=== PATIENT | female | born 1965 | race Caucasian/White ===

== ENCOUNTER 2017-05-30 12:58 | Inpatient (IN) | payer BC ==
[~2017-05-30] VITALS: Ht 157.5 cm; Wt 141.6 kg
--- NOTE | ~2017-05-30 | CN ---
Consultation Report [facility] [address] [place]. [address] NAME: EUGENE DURAND : 69 STATUS : ADM IN PAT#: [id number] AGE: 51 ADM/REG DATE : 05/30/17 MR#: [id number] REPORT SERV DATE: 06/02/17 DICTATED BY: MAYO MCDONALD DATE: 06/01/17 REPORT STATUS : Draft TRANSCRIBED BY: MODL DATE: 06/01/17 INFECTIOUS DISEASE CONSULT DATE OF CONSULTATION: 06/01/2017 REASON FOR CONSULTATION: MSSA sepsis. HISTORY OF PRESENT ILLNESS: This is a 51-year-old female with a past medical history notable for diabetes and morbid obesity, who had progressed to end-stage renal disease recently and begun on dialysis a few weeks ago. Initially, a PermCath had been placed, but she does have an AV fistula, which has been used more recently. The patient developed the acute onset of chills, shortness of breath, and some chest discomfort on the night of 05/29/2017 and presented to the emergency department on 05/30/2017 where she was febrile to 100.3 and had a white blood cell count of 20.4 thousand and procalcitonin of 3.28. Blood cultures were obtained, and she was started on antibiotics. Her PermCath was removed. Both sets of blood cultures returned positive for MSSA and the tip of her PermCath also has grown greater than 100 colonies of MSSA. The patient was placed initially on vancomycin. This was switched yesterday to Ancef. Her white blood cell count is now normal. She did have a fever to 103.6 yesterday, but has been afebrile since then. She denies any pain. She denies having had any problems with the PermCath. PAST MEDICAL HISTORY: As outlined above. She has had severe diabetic retinopathy and is blind. There is a history of congestive heart failure, hypothyroidism, and anxiety. ALLERGIES: NONE. MEDICATIONS: Present medications in addition to Ancef include Norvasc, aspirin, Lipitor, vitamin D, iron, Lasix, subcutaneous heparin, hydralazine, insulin, Synthroid, Accupril, Zoloft, Aldactone. SOCIAL HISTORY: Lives with her brothers. Nonsmoker, nondrinker. FAMILY HISTORY: Unremarkable. REVIEW OF SYSTEMS: Otherwise negative. She has no prosthetic material otherwise in her body. No history of valvular heart disease. PHYSICAL EXAMINATION: VITAL SIGNS: The patient weighs 145 kg. She is afebrile. Blood pressure 129/60; pulse 79, it was as high as 103; respiratory rate 16, it was as high as 24. GENERAL: She is alert, no distress. HEAD AND NECK: Oral cavity is clear. LUNGS: Clear to auscultation anteriorly. CARDIAC: Somewhat distant heart sounds. Regular rate and rhythm. Normal S1, S2 with a very Consultation Report [address] [place]. [address] NAME: EUGENE DURAND : 69 STATUS : ADM IN LOCATED WITHIN [facility]#: [id number] AGE: 51 ADM/REG DATE : 05/30/17 MR#: [id number] REPORT SERV DATE: 06/02/17 DICTATED BY: MAYO MCDONALD DATE: 06/01/17 REPORT STATUS : Draft TRANSCRIBED BY: CATHLEEN DATE: 06/01/17 soft 1/6 systolic murmur, left sternal border. ABDOMEN: Obese, soft, and nontender. EXTREMITIES: Show trace edema of the lower legs. She has an AV fistula in her left arm. She has a peripheral IV in her right arm without phlebitis. The old PermCath site in the right upper chest is covered by a dressing. LABORATORY STUDIES: White blood cell counts as mentioned, hemoglobin 10.2, platelets 214. Microbiology studies as noted. Blood cultures were repeated later on 05/30/2017 and have returned negative. Chest x-ray showed some mild congestive changes. The patient had a transthoracic echocardiogram on 06/01/2017, which was a technically difficult study, but showed normal left ventricular size and function with an estimated ejection fraction of 50% to 55%. There was mild mitral valve stenosis. IMPRESSION: Methicillin-susceptible Staphylococcus aureus sepsis secondary to a PermCath infection. PLAN: 1. Recommend IV Ancef through 06/15/2017, once the patient is discharged, this can be dosed 2 g after the Thursday and dialysis sessions and 3 g after the Thursday dialysis session. 2. Check surveillance blood culture now. 3. She should not need a new catheter as her AV fistula is being used for dialysis. LAKSHMI/CATHLEEN Mayo Mcdonald M.D. / [id number] CC: Charlie Coppola MD [facility]
--- NOTE | ~2017-05-30 | HP ---
History And Physical [id number] [place]. [address] NAME: EUGENE DURAND : 69 STATUS : ADM IN [facility]#: [id number] AGE: 51 ADM/REG DATE : 05/30/17 MR#: [id number] REPORT SERV DATE: 05/30/17 DICTATED BY: DATE: REPORT STATUS : Draft TRANSCRIBED BY: MODL DATE: 05/30/17 DATE OF ADMISSION: 05/30/2017 CHIEF COMPLAINT: Shortness of breath, fever. HISTORY OF PRESENT ILLNESS: Ms. Durand is a 51-year-old white female, who just recently started on dialysis within the last two weeks. She has end-stage renal disease secondary to diabetes and has been dialyzing Thursday, , Thursday at the [facility]. She presented to the emergency department at [facility] after awaking at approximately midnight with sudden-onset nausea, vomiting, shortness of breath, nonproductive cough, and some chest pressure. She denies any productive cough. She did have subjective fevers and at [facility], she was noted to have temperature of 100.3, chest x-ray with edema, question of infection. She has significant cardiomegaly. Given all this, she is being admitted for further evaluation and treatment. PAST MEDICAL HISTORY: 1. End-stage renal disease, dialyzes at [facility] on Thursday, , Thursday. 2. Diabetes with retinopathy. 3. She gives a history of congestive heart failure. She does not know her ejection fraction. 4. Type 2 diabetes. 5. Morbid obesity. 6. Hypothyroidism. 7. Anxiety. FAMILY HISTORY: Negative for end-stage renal disease. SOCIAL HISTORY: She lives with her brothers. No tobacco or history of. No alcohol or illicit drug use. ALLERGIES: NONE. MEDICATIONS AT HOME: Albuterol, amlodipine, aspirin, Lipitor, Symbicort, ferrous sulfate, Lasix, NovoLog insulin, Lantus, levothyroxine, Accupril, Zoloft, and Aldactone, and vitamin D3. REVIEW OF SYSTEMS: A 12-point review of systems obtained, negative with the exception that in HPI. PHYSICAL EXAMINATION: VITAL SIGNS: Temp 100.3, blood pressure 183/85, pulse 77, respiratory rate 20, O2 saturation is 96% on 2 L. GENERAL: This is a chronically ill-appearing 51-year-old white female. She is awake and alert, answers questions appropriately. HEENT: Normocephalic, atraumatic. Conjunctivae clear. Sclerae nonicteric. Pupils are equal and round. Oral mucosa is dry. History And Physical [address] [place]. [address] NAME: EUGENE DURAND : [birth year] STATUS : ADM IN [facility]#: [id number] AGE: 51 ADM/REG DATE : 05/30/17 MR#: [id number] REPORT SERV DATE: 05/30/17 DICTATED BY: DATE: REPORT STATUS : Draft TRANSCRIBED BY: MODL DATE: 05/30/17 NECK: Thick. I really cannot assess neck veins due to her thick neck. LUNGS: Respirations are slightly labored with exertion of talking. She does have bibasilar crackles. HEART: Her heart tones are distant. I did not hear any murmur, rub, or gallop. ABDOMEN: Obese, soft, nontender. Bowel sounds active. No masses or hepatosplenomegaly. No CVA tenderness. BACK: Within normal limits. EXTREMITIES: She does have pitting edema bilaterally. SKIN: No unusual rashes or skin lesions. She has an AV fistula to the left upper arm. Positive thrill and bruit. NEURO: No focal deficits. Mood and affect anxious, but appropriate. PERTINENT LABS AND X-RAYS: She had an influenza screen that was negative. She has a urinalysis without any bacteria. BNP of 870. Sodium 136, potassium 3.3, chloride 98, CO2 of 28, BUN of 26, creatinine of 3.2, calcium 8.5, magnesium of 1.6. Troponin 0.06, lactate 1.7. WBC 20,000, H and H 10 and 33, platelets 291,000. Chest x-ray with significant cardiomegaly with pulmonary edema. IMPRESSION: 1. Shortness of breath. Pulmonary edema. 2. Fever. 3. Nausea, vomiting. 4. Possible pneumonia. 5. End-stage renal disease. 6. Diabetes. 7. Leukocytosis. 8. Hypokalemia. 9. Hypomagnesemia. PLAN: She is going to be admitted to a monitored bed. We will go ahead and dialyze her and challenge UF as able. Usual medicines as appropriate. She has already received Rocephin and azithromycin at [facility]. We will continue this for now. Check procalcitonin. Follow up CBC and cultures in a.m. Serial cardiac enzymes. Replace magnesium. Further orders and recommendations pending clinical course. HELENE/MODL JAMEL Cannon / [id number] CC: Charlie Coppola MD
--- NOTE | ~2017-05-30 | OP ---
Record Of Operation [facility] [address] [place]. [address] NAME: EUGENE DURAND : 69 STATUS : ADM IN [facility]#: [id number] AGE: 51 ADM/REG DATE : 05/30/17 MR#: [id number] REPORT SERV DATE: 05/30/17 DICTATED BY: SEAN FIGUEROA DATE: 05/30/17 REPORT STATUS : Draft TRANSCRIBED BY: MODL DATE: 05/30/17 DATE OF PROCEDURE: 05/30/2017 PREOPERATIVE DIAGNOSES: 1. Fever. 2. End-stage renal disease. POSTOPERATIVE DIAGNOSES: 1. Fever. 2. End-stage renal disease. PROCEDURE: PermCath removal. SURGEON: Sean Figueroa M.D. [employer]ING [employer] H[employer]IC[employer] SQUAD: None. ANESTHESIA: Local. INDICATIONS: The patient is a 51-year-old female who underwent a left brachiocephalic arteriovenous fistula with my partner, Dr. Tolliver. The fistula is working well but she is now admitted with a fever. While it is suspected that it may be related to a pneumonia, I did desire that the PermCath be removed but the tip can be cultured, just in case the PermCath is the source of the infection. Risks, benefits, and alternatives were discussed. She agreed to proceed. DESCRIPTION OF PROCEDURE: After informed consent was obtained, the patient's right chest was prepped and draped in usual sterile fashion. Local anesthetic was administered. I cut the sutures and dissected out the cuff of the PermCath. I removed the PermCath. I used manual pressure for hemostasis. The patient tolerated the procedure well without any intraprocedural complications noted. JEWEL BLOCKER AND SAWYER/CATHLEEN Sean Figueroa M.D. / [id number] CC: Charlie Coppola MD
[~2017-05-30 12:58] MED LIST: ACCUPRIL40 MG PO; ASAB PO; ASABAYER PO; CHOLECALCIFEROL PO; COREG3 PO; COZ25 PO; FERROUS SULF325 M1 PO; L20 PO; LANTUS SC; LEVOTHYROXIN100 MCG PO; LIPITOR20; LIPITOR40 PO; MAGNESIUM PO; MULTIPLE VIT PO; NORV25 PO; NORV5 PO; NOVOLOG SC; PROAIR HFA INH; SPIRO25 PO; SYMBICORT 160/41 INH INH; ZOL100 PO; [UNRECOGNIZED DRUG - OTHER] PO
[2017-05-30] MEDS ORDERED: ACET500CAP PO (16:25)
[2017-05-30] MEDS ORDERED: SPIRO25 PO (16:26)
[2017-05-30] MEDS ORDERED: LIPITOR40 PO (16:26)
[2017-05-30] MEDS ORDERED: LANTUS SC (16:26)
[2017-05-30] MEDS ORDERED: LEVOTHYROXIN150 MCG PO (16:28)
[2017-05-30] MEDS ORDERED: L20 PO (16:28)
[2017-05-30] MEDS ORDERED: NOVOPEN SC (16:29)
[2017-05-30] MEDS ORDERED: D 5000 PO (16:29)
[2017-05-30] MEDS ORDERED: ASAB PO (16:29)
[2017-05-30] MEDS ORDERED: NORV5 PO (16:30)
[2017-05-30] MEDS ORDERED: ACCUPRIL40 MG PO (16:30)
[2017-05-30] MEDS ORDERED: PROAIR HFA INH (16:31)
[2017-05-30] MEDS ORDERED: ZOL100 PO (16:31)
[2017-05-30] MEDS ORDERED: FERROUS SULF325 M1 PO (16:32)
[2017-05-30] MEDS ORDERED: SYMBICORT 80/4.1 INH INH (16:32)
[2017-05-30 19:19] LABS: BASOPHILS 0.1 %; BASOPHILS ABSOLUTE 0.01 10/3/uL (0.0-0.16); EOSINOPHILS 0 %; HEMATOCRIT 32.5 % (36.0-48.0); HEMOGLOBIN 10.6 g/dL (12.0-16.0); IMMATURE GRANULOCYTES 0.3 %; IMMATURE GRANULOCYTES ABSOLUTE 0.06 10/3/uL (0.0-0.11); LYMPHOCYTES 2.3 %; LYMPHOCYTES ABSOLUTE 0.43 10/3/uL (0.67-4.30); MEAN CORPUS HGB CONC 32.6 g/dL (32.0-36.0); MEAN CORPUSCULAR HEMOGLOB 27.1 pg (26.0-34.0); MEAN CORPUSCULAR VOLUME 83.1 fL (80-100); MEAN PLATELET VOLUME 9.4 fL (9.2-13.0); MONOCYTES 1.9 %; MONOCYTES ABSOLUTE 0.35 10/3/uL (0.21-1.20); NEUTROPHILS 95.4 %; NEUTROPHILS ABSOLUTE 17.82 10/3/uL (2.02-8.40); PLATELET COUNT 218 10/3/uL (150-400); RBC DISTRIBUTION WIDTH 16.3 % (12.0-16.0); RED CELL COUNT 3.91 10/6/uL (4.0-5.6); WHITE BLOOD CELLS 18.7 10/3/uL (4.5-10.5)
[2017-05-30 19:22] LABS: MANUAL DIFF NO %
[2017-05-30 19:50] LABS: CPK 124 U/L (0-200)
[2017-05-30 19:52] LABS: CK-MB 0.6 NG/ML; TROPONIN I 0.06 NG/ML (<0.05)
[2017-05-30 23:16] LABS: CK-MB 1.2 NG/ML; CPK < 7 U/L (0-200); TROPONIN I 0.05 NG/ML (<0.05)
[2017-05-31 06:33] LABS: BASOPHILS 0.1 %; BASOPHILS ABSOLUTE 0.01 10/3/uL (0.0-0.16); EOSINOPHILS 0.1 %; EOSINOPHILS ABSOLUTE 0.01 10/3/uL (0.0-0.53); HEMATOCRIT 31.1 % (36.0-48.0); HEMOGLOBIN 9.8 g/dL (12.0-16.0); IMMATURE GRANULOCYTES 0.4 %; IMMATURE GRANULOCYTES ABSOLUTE 0.05 10/3/uL (0.0-0.11); LYMPHOCYTES 4.2 %; LYMPHOCYTES ABSOLUTE 0.56 10/3/uL (0.67-4.30); MANUAL DIFF NO %; MEAN CORPUS HGB CONC 31.5 g/dL (32.0-36.0); MEAN CORPUSCULAR HEMOGLOB 26.6 pg (26.0-34.0); MEAN CORPUSCULAR VOLUME 84.5 fL (80-100); MEAN PLATELET VOLUME 9.9 fL (9.2-13.0); MONOCYTES 3.9 %; MONOCYTES ABSOLUTE 0.52 10/3/uL (0.21-1.20); NEUTROPHILS 91.3 %; PLATELET COUNT 211 10/3/uL (150-400); RBC DISTRIBUTION WIDTH 16.4 % (12.0-16.0); RED CELL COUNT 3.68 10/6/uL (4.0-5.6); WHITE BLOOD CELLS 13.4 10/3/uL (4.5-10.5)
[2017-05-31 06:51] LABS: ALBUMIN 2.3 G/DL (3.5-5.0); BUN (BLOOD UREA NITROGEN) 25 MG/DL (6-23); CALCIUM, SERUM 8.2 MG/DL (8.5-10.4); CHLORIDE, SERUM 101 MMOL/L (96-112); CREATININE 2.93 MG/DL (0.55-1.02); GFR AFRICAN AMERICAN 21 ML/MIN (>=60); GFR NON AFRICAN AMERICAN 18 ML/MIN (>=60); GLUCOSE, SERUM 262 MG/DL (60-99); PHOSPHORUS, SERUM 3.6 MG/DL (2.5-4.5); POTASSIUM, SERUM 3.7 MMOL/L (3.5-5.3); SODIUM, SERUM 136 MMOL/L (135-148); TROPONIN I 0.04 NG/ML (<0.05)
[2017-05-31 06:53] LABS: CK-MB 0.6 NG/ML; CO2 (CARBON DIOXIDE) 23 MMOL/L (24-34); CPK 126 U/L (0-200)
[2017-05-31 15:26] LABS: TROPONIN I 0.03 NG/ML (<0.05)
[2017-05-31 15:27] LABS: CK-MB < 0.5 NG/ML; CPK 162 U/L (0-200)
[2017-06-01 07:26] LABS: BASOPHILS 0.1 %; BASOPHILS ABSOLUTE 0.01 10/3/uL (0.0-0.16); EOSINOPHILS 0.5 %; EOSINOPHILS ABSOLUTE 0.04 10/3/uL (0.0-0.53); HEMATOCRIT 32.7 % (36.0-48.0); HEMOGLOBIN 10.2 g/dL (12.0-16.0); IMMATURE GRANULOCYTES 0.5 %; IMMATURE GRANULOCYTES ABSOLUTE 0.04 10/3/uL (0.0-0.11); LYMPHOCYTES 8.8 %; LYMPHOCYTES ABSOLUTE 0.77 10/3/uL (0.67-4.30); MEAN CORPUS HGB CONC 31.2 g/dL (32.0-36.0); MEAN CORPUSCULAR HEMOGLOB 26.4 pg (26.0-34.0); MEAN CORPUSCULAR VOLUME 84.7 fL (80-100); MONOCYTES 4.7 %; MONOCYTES ABSOLUTE 0.41 10/3/uL (0.21-1.20); NEUTROPHILS 85.4 %; NEUTROPHILS ABSOLUTE 7.48 10/3/uL (2.02-8.40); PLATELET COUNT 214 10/3/uL (150-400); RBC DISTRIBUTION WIDTH 16.7 % (12.0-16.0); RED CELL COUNT 3.86 10/6/uL (4.0-5.6); WHITE BLOOD CELLS 8.8 10/3/uL (4.5-10.5)
[2017-06-01 07:33] LABS: MANUAL DIFF NO %
[2017-06-01 07:38] LABS: ALBUMIN 2.6 G/DL (3.5-5.0); CALCIUM, SERUM 8.7 MG/DL (8.5-10.4); CHLORIDE, SERUM 97 MMOL/L (96-112); CO2 (CARBON DIOXIDE) 25 MMOL/L (24-34); PHOSPHORUS, SERUM 3.4 MG/DL (2.5-4.5); POTASSIUM, SERUM 3.3 MMOL/L (3.5-5.3); SODIUM, SERUM 133 MMOL/L (135-148)
[2017-06-01 07:39] LABS: BUN (BLOOD UREA NITROGEN) 39 MG/DL (6-23); CREATININE 3.85 MG/DL (0.55-1.02); GFR AFRICAN AMERICAN 15 ML/MIN (>=60); GFR NON AFRICAN AMERICAN 13 ML/MIN (>=60); GLUCOSE, SERUM 183 MG/DL (60-99)
[2017-06-01 09:47] LABS: HEPATITIS B SURFACE ANTIGEN NON-REACTIVE (NON-REACT)
[2017-06-01 10:14] LABS: HEPATITIS C ANTIBODY NON-REACTIVE (NON-REACT)
[2017-06-01 10:15] LABS: HEPATITIS B CORE AB IGM NON-REACTIVE (NON-REAC); HIV COMBO NON-REACTIVE (NON REAC)
[2017-06-01 10:16] LABS: HEP A ANTIBODY IGM NON-REACTIVE (NON-REACT)
[2017-06-04 07:42] LABS: BASOPHILS 0.2 %; BASOPHILS ABSOLUTE 0.02 10/3/uL (0.0-0.16); EOSINOPHILS 3.7 %; EOSINOPHILS ABSOLUTE 0.41 10/3/uL (0.0-0.53); HEMATOCRIT 29.9 % (36.0-48.0); HEMOGLOBIN 9.7 g/dL (12.0-16.0); IMMATURE GRANULOCYTES 1.2 %; IMMATURE GRANULOCYTES ABSOLUTE 0.13 10/3/uL (0.0-0.11); LYMPHOCYTES 17.8 %; LYMPHOCYTES ABSOLUTE 1.97 10/3/uL (0.67-4.30); MEAN CORPUS HGB CONC 32.4 g/dL (32.0-36.0); MEAN CORPUSCULAR HEMOGLOB 26.9 pg (26.0-34.0); MEAN CORPUSCULAR VOLUME 82.8 fL (80-100); MEAN PLATELET VOLUME 9.7 fL (9.2-13.0); MONOCYTES 5.9 %; MONOCYTES ABSOLUTE 0.65 10/3/uL (0.21-1.20); NEUTROPHILS 71.2 %; NEUTROPHILS ABSOLUTE 7.87 10/3/uL (2.02-8.40); PLATELET COUNT 249 10/3/uL (150-400); RBC DISTRIBUTION WIDTH 16.3 % (12.0-16.0); RED CELL COUNT 3.61 10/6/uL (4.0-5.6); WHITE BLOOD CELLS 11.1 10/3/uL (4.5-10.5)
[2017-06-04 07:43] LABS: MANUAL DIFF NO %
[2017-06-04 07:58] LABS: ALBUMIN 2.6 G/DL (3.5-5.0); BUN (BLOOD UREA NITROGEN) 39 MG/DL (6-23); CALCIUM, SERUM 9.1 MG/DL (8.5-10.4); CHLORIDE, SERUM 100 MMOL/L (96-112); CO2 (CARBON DIOXIDE) 25 MMOL/L (24-34); CREATININE 3.92 MG/DL (0.55-1.02); GFR AFRICAN AMERICAN 15 ML/MIN (>=60); GFR NON AFRICAN AMERICAN 13 ML/MIN (>=60); GLUCOSE, SERUM 94 MG/DL (60-99); PHOSPHORUS, SERUM 3.1 MG/DL (2.5-4.5); POTASSIUM, SERUM 3.7 MMOL/L (3.5-5.3); SODIUM, SERUM 136 MMOL/L (135-148)
[2017-06-05 06:26] LABS: BASOPHILS 0.2 %; BASOPHILS ABSOLUTE 0.02 10/3/uL (0.0-0.16); EOSINOPHILS 3.3 %; EOSINOPHILS ABSOLUTE 0.41 10/3/uL (0.0-0.53); HEMATOCRIT 30.7 % (36.0-48.0); HEMOGLOBIN 9.8 g/dL (12.0-16.0); IMMATURE GRANULOCYTES 2.2 %; IMMATURE GRANULOCYTES ABSOLUTE 0.28 10/3/uL (0.0-0.11); LYMPHOCYTES 15.1 %; LYMPHOCYTES ABSOLUTE 1.89 10/3/uL (0.67-4.30); MEAN CORPUS HGB CONC 31.9 g/dL (32.0-36.0); MEAN CORPUSCULAR HEMOGLOB 26.9 pg (26.0-34.0); MEAN CORPUSCULAR VOLUME 84.3 fL (80-100); MEAN PLATELET VOLUME 9.8 fL (9.2-13.0); MONOCYTES 6.2 %; MONOCYTES ABSOLUTE 0.78 10/3/uL (0.21-1.20); NEUTROPHILS ABSOLUTE 9.16 10/3/uL (2.02-8.40); PLATELET COUNT 273 10/3/uL (150-400); RBC DISTRIBUTION WIDTH 16.2 % (12.0-16.0); RED CELL COUNT 3.64 10/6/uL (4.0-5.6); WHITE BLOOD CELLS 12.5 10/3/uL (4.5-10.5)
[2017-06-05 06:32] LABS: MANUAL DIFF NO %
[2017-06-05 10:14] LABS: BASOPHILS 0.1 %; BASOPHILS ABSOLUTE 0.01 10/3/uL (0.0-0.16); EOSINOPHILS 3.6 %; EOSINOPHILS ABSOLUTE 0.41 10/3/uL (0.0-0.53); HEMATOCRIT 29.6 % (36.0-48.0); HEMOGLOBIN 9.2 g/dL (12.0-16.0); IMMATURE GRANULOCYTES 1.7 %; IMMATURE GRANULOCYTES ABSOLUTE 0.19 10/3/uL (0.0-0.11); LYMPHOCYTES 18.1 %; LYMPHOCYTES ABSOLUTE 2.05 10/3/uL (0.67-4.30); MEAN CORPUS HGB CONC 31.1 g/dL (32.0-36.0); MEAN CORPUSCULAR HEMOGLOB 25.9 pg (26.0-34.0); MEAN CORPUSCULAR VOLUME 83.4 fL (80-100); MEAN PLATELET VOLUME 9.8 fL (9.2-13.0); MONOCYTES 6.4 %; MONOCYTES ABSOLUTE 0.72 10/3/uL (0.21-1.20); NEUTROPHILS 70.1 %; NEUTROPHILS ABSOLUTE 7.93 10/3/uL (2.02-8.40); PLATELET COUNT 265 10/3/uL (150-400); RBC DISTRIBUTION WIDTH 16.4 % (12.0-16.0); RED CELL COUNT 3.55 10/6/uL (4.0-5.6); WHITE BLOOD CELLS 11.3 10/3/uL (4.5-10.5)
[2017-06-05 10:16] LABS: MANUAL DIFF NO %
[2017-06-05 10:25] LABS: ALBUMIN 2.6 G/DL (3.5-5.0); BUN (BLOOD UREA NITROGEN) 29 MG/DL (6-23); CALCIUM, SERUM 8.7 MG/DL (8.5-10.4); CHLORIDE, SERUM 101 MMOL/L (96-112); CO2 (CARBON DIOXIDE) 26 MMOL/L (24-34); CREATININE 3.77 MG/DL (0.55-1.02); GFR AFRICAN AMERICAN 15 ML/MIN (>=60); GFR NON AFRICAN AMERICAN 13 ML/MIN (>=60); GLUCOSE, SERUM 100 MG/DL (60-99); PHOSPHORUS, SERUM 3.2 MG/DL (2.5-4.5); POTASSIUM, SERUM 3.9 MMOL/L (3.5-5.3); SODIUM, SERUM 137 MMOL/L (135-148)
== END 2017-06-05 19:32 | disposition home or self-care (01) | DRG 871 ==
LOC: ENRESERVTM → ENRESERVDT → ENRESERV → 4SO 15:24 → ENPENDDIS 15:24 → 4SO 05-31 20:53
PROVIDERS: Internal Medicine Infectious Disease; Internal Medicine Nephrology; Nurse Practitioner; Registered Nurse
PROC: 05PYX3Z Removal of Infusion Device from Upper Vein, External Approach (ICD-10-PCS; principal; 2017-05-30)
PROC: 5A1D00Z (ICD-10-PCS; 2017-05-30)
DX: A41.01 Sepsis due to Methicillin susceptible Staphylococcus aureus (principal); N18.6 End stage renal disease; I50.43 Acute on chronic combined systolic (congestive) and diastolic (congestive) heart failure; J18.9 Pneumonia, unspecified organism; E11.22 Type 2 diabetes mellitus with diabetic chronic kidney disease; Z68.44 Body mass index [BMI] 60.0-69.9, adult; E66.01 Morbid (severe) obesity due to excess calories; E03.9 Hypothyroidism, unspecified; F41.9 Anxiety disorder, unspecified; E87.6 Hypokalemia; E83.42 Hypomagnesemia
CPT/HCPCS: 71010; 71020; 80069; 80074; 82550; 82553; 82962; 83735; 84145; 84484; 85025; 87040; 87070; 87077; 87186; 87389; 94640; 97110-GP; 97116-GP; 97161-GP; 97165-GO; 97535-GO; A9270-GY; C8929; G0257; G8978-CK-GP; G8979-CJ-GP; J0456; J0690; J3370; J3475; Q9957